=== PATIENT | male | born 1945 | race Two or more races ===

== ENCOUNTER 2016-08-31 09:01 | Day surgery (SDC) | payer OTHER, MEDICARE ==
[~2016-08-31] VITALS: Ht 172.7 cm; Wt 37.9 kg
[~2016-08-31 09:01] MED LIST: 0.9% Sodium Chloride 1,000 ML IV SCH; NOMED; Sodium Chloride LOK Flush 10 mL Syringe IV PRN; fentaNYL-PF 50 mCg/mL 2 mL Inj IVPUSH PRN
[2016-08-31 09:29] VITALS: BP 144/104; PULSE 77; RESP 14; O2SAT 98
== END 2016-08-31 23:59 | disposition home or self-care (01) ==
LOC: END 09:01
PROVIDERS: ATTEND Internal Medicine Gastroenterology
DX: Z12.11 Encounter for screening for malignant neoplasm of colon (principal); Z53.8 Procedure and treatment not carried out for other reasons